=== PATIENT | male | born 1945 | race Caucasian/White ===

== ENCOUNTER 2016-07-18 19:19 | Inpatient (IN) | payer MEDICARE ==
[~2016-07-18] VITALS: Ht 180.3 cm; Wt 92.1 kg
[2016-07-18 22:09] LABS: RED BLOOD COUNT 4.1 M/UL (4.20-5.50); WHITE BLOOD COUNT 12.5 K/UL (4.5-11.0)
[2016-07-19 07:34] LABS: HEMOGLOBIN 12.6 gm/dl (14.0-17.5); RED BLOOD COUNT 3.71 M/UL (4.20-5.50)
[2016-07-19] MEDS ORDERED: ELIQUIS5 MG PO (11:12)
[2016-07-19] MEDS ORDERED: CARAFATE SU100 MG/ML PO (11:13)
[2016-07-19] MEDS ORDERED: ASPIRIN EC81 MG PO (11:13)
[2016-07-19] MEDS ORDERED: VALIUM 2 MG TAB2 MG PO (11:14)
[2016-07-19] MEDS ORDERED: ZETIA 10 MG TAB10 MG PO (11:15)
[2016-07-19] MEDS ORDERED: FOLIC ACID 1 MG1 MG PO (11:15)
[2016-07-19] MEDS ORDERED: LISINOPRIL40 MG PO (11:16)
[2016-07-19] MEDS ORDERED: NORCO 10-325 T1 EACH PO (11:16)
[2016-07-19] MEDS ORDERED: MAGNESIUM OXID400 MG PO (11:17)
[2016-07-19] MEDS ORDERED: DITROPAN 5 MG TA5 MG PO (11:18)
[2016-07-19] MEDS ORDERED: POTASSIUM CHLO10 MEQ PO (11:19)
[2016-07-19] MEDS ORDERED: VENTOLIN HFA 66.7 GM INH (11:20)
[2016-07-19] MEDS ORDERED: ZYLOPRIM 100 M100 MG PO (11:20)
[2016-07-19] MEDS ORDERED: LOPRESSOR100 MG PO (11:21)
[2016-07-19] MEDS ORDERED: PROTONIX 40 MG40 M1 PO (11:22)
[2016-07-19] MEDS ORDERED: ZANTAC 150 MG150 MG PO (11:22)
[2016-07-19 19:51] LABS: HEMOGLOBIN 11.6 gm/dl (14.0-17.5); RED BLOOD COUNT 3.43 M/UL (4.20-5.50); WHITE BLOOD COUNT 18.5 K/UL (4.5-11.0)
[2016-07-20 03:51] LABS: HEMOGLOBIN 11.7 gm/dl (14.0-17.5); RED BLOOD COUNT 3.5 M/UL (4.20-5.50); WHITE BLOOD COUNT 14.1 K/UL (4.5-11.0)
[2016-07-20 15:25] LABS: WHITE BLOOD COUNT 16.9 K/UL (4.5-11.0)
[2016-07-21 04:17] LABS: HEMOGLOBIN 12.1 gm/dl (14.0-17.5); RED BLOOD COUNT 3.61 M/UL (4.20-5.50); WHITE BLOOD COUNT 12.9 K/UL (4.5-11.0)
[2016-07-22 05:19] LABS: RED BLOOD COUNT 3.32 M/UL (4.20-5.50)
[2016-07-22 05:20] LABS: WHITE BLOOD COUNT 16.2 K/UL (4.5-11.0)
[2016-07-23 04:03] LABS: HEMOGLOBIN 10.6 gm/dl (14.0-17.5); RED BLOOD COUNT 3.16 M/UL (4.20-5.50); WHITE BLOOD COUNT 14.8 K/UL (4.5-11.0)
[2016-07-24 04:26] LABS: RED BLOOD COUNT 3.01 M/UL (4.20-5.50)
[2016-07-25 03:49] LABS: HEMOGLOBIN 10.1 gm/dl (14.0-17.5); RED BLOOD COUNT 3.09 M/UL (4.20-5.50); WHITE BLOOD COUNT 14.2 K/UL (4.5-11.0)
[2016-07-26 04:40] LABS: HEMOGLOBIN 9.1 gm/dl (14.0-17.5); RED BLOOD COUNT 2.81 M/UL (4.20-5.50); WHITE BLOOD COUNT 14.9 K/UL (4.5-11.0)
[2016-07-27 06:40] LABS: HEMOGLOBIN 8.9 gm/dl (14.0-17.5); RED BLOOD COUNT 2.75 M/UL (4.20-5.50); WHITE BLOOD COUNT 11.8 K/UL (4.5-11.0)
[2016-07-28 06:29] LABS: HEMOGLOBIN 8.2 gm/dl (14.0-17.5); RED BLOOD COUNT 2.53 M/UL (4.20-5.50); WHITE BLOOD COUNT 12.5 K/UL (4.5-11.0)
[2016-07-28] MEDS ORDERED: NORVASC2.5 MG PO (21:23)
[2016-07-28] MEDS ORDERED: VITAMIN D 11000 UNIT PO (21:24)
[2016-07-28] MEDS ORDERED: FORTAZ IV (21:33)
[2016-07-28] MEDS ORDERED: MULTIVITAMINS1 EAC1 PO (21:47)
[2016-11-28] MEDS ORDERED: VENTOLIN HFA 66.7 GM INH (22:37)
[2016-11-28] MEDS ORDERED: VALIUM 2 MG TAB2 MG PO (22:37)
[2016-11-28] MEDS ORDERED: ASPIRIN81 MG PO (22:38)
[2016-11-28] MEDS ORDERED: LISINOPRIL40 MG PO (22:38)
[2016-11-28] MEDS ORDERED: NORCO 10-325 T1 EACH PO (22:38)
[2016-11-28] MEDS ORDERED: ALDACTONE25 MG PO (22:39)
[2017-01-30] MEDS ORDERED: ALDACTONE25 MG PO (03:10)
[2017-01-30] MEDS ORDERED: ENDOCET 5-3251 EACH PO (03:10)
[2017-01-30] MEDS ORDERED: CARAFATE1 GM/10 ML PO (03:11)
[2017-01-30] MEDS ORDERED: ZOCOR10 MG PO (03:11)
[2017-01-30] MEDS ORDERED: MAG-OX 400 TAB400 MG PO (03:12)
[2017-01-30] MEDS ORDERED: DITROPAN 5 MG TA5 MG PO (03:13)
[2017-01-30] MEDS ORDERED: KLOR-CON M2020 MEQ PO (03:13)
[2017-01-30] MEDS ORDERED: LISINOPRIL40 MG PO (03:14)
[2017-02-07] MEDS ORDERED: TYLENOL 325MG325 MG PO (16:24)
[2017-02-07] MEDS ORDERED: FORTAZ IV (16:27)
[2017-02-07] MEDS ORDERED: VANCOMYCIN IV750 MG IV (16:28)
== END 2016-07-28 22:10 | disposition home health service (06) | DRG 682 ==
LOC: ER1 19:19 → M/S 07-19 05:09 → PROG CARE 07-19 05:09 → ZEROF 07-19 05:09 → PROG CARE 07-19 16:20 → M/S 07-26 18:20
PROVIDERS: Family Medicine; Internal Medicine; Internal Medicine Hematology & Oncology; Internal Medicine Nephrology; ADMIT Internal Medicine
PROC: B54BZZA Ultrasonography of Right Lower Extremity Veins, Guidance (ICD-10-PCS; principal; 2016-07-21)
PROC: 06HM33Z Insertion of Infusion Device into Right Femoral Vein, Percutaneous Approach (ICD-10-PCS; principal; 2016-07-21)
PROC: 05HM33Z Insertion of Infusion Device into Right Internal Jugular Vein, Percutaneous Approach (ICD-10-PCS; 2016-07-25)
PROC: B513ZZA Fluoroscopy of Right Jugular Veins, Guidance (ICD-10-PCS; 2016-07-25)
DX: N17.0 Acute kidney failure with tubular necrosis (principal); A41.51 Sepsis due to Escherichia coli [E. coli]; G93.41 Metabolic encephalopathy; I50.21 Acute systolic (congestive) heart failure; E87.1 Hypo-osmolality and hyponatremia; I42.9 Cardiomyopathy, unspecified; E87.2 Acidosis; D53.9 Nutritional anemia, unspecified; I11.0 Hypertensive heart disease with heart failure; D69.6 Thrombocytopenia, unspecified; D72.829 Elevated white blood cell count, unspecified; I48.2 Chronic atrial fibrillation; Z66 Do not resuscitate; E86.0 Dehydration; R31.9 Hematuria, unspecified; F10.20 Alcohol dependence, uncomplicated; Z51.89 Encounter for other specified aftercare; G47.30 Sleep apnea, unspecified; K21.9 Gastro-esophageal reflux disease without esophagitis; Z79.01 Long term (current) use of anticoagulants; M51.9 Unspecified thoracic, thoracolumbar and lumbosacral intervertebral disc disorder; N40.0 Benign prostatic hyperplasia without lower urinary tract symptoms; M10.9 Gout, unspecified; E78.5 Hyperlipidemia, unspecified; Z87.828 Personal history of other (healed) physical injury and trauma; Z96.7 Presence of other bone and tendon implants; Z98.890 Other specified postprocedural states; Z96.652 Presence of left artificial knee joint; I73.9 Peripheral vascular disease, unspecified; J44.9 Chronic obstructive pulmonary disease, unspecified; I25.10 Atherosclerotic heart disease of native coronary artery without angina pectoris; Z80.1 Family history of malignant neoplasm of trachea, bronchus and lung; Z80.8 Family history of malignant neoplasm of other organs or systems; Z82.49 Family history of ischemic heart disease and other diseases of the circulatory system; F55.8 Abuse of other non-psychoactive substances; Z87.891 Personal history of nicotine dependence; Z90.49 Acquired absence of other specified parts of digestive tract; Z91.81 History of falling; Z83.3 Family history of diabetes mellitus; R63.0 Anorexia; Z68.28 Body mass index [BMI] 28.0-28.9, adult; K76.9 Liver disease, unspecified; Z99.81 Dependence on supplemental oxygen; Z79.82 Long term (current) use of aspirin; Z79.899 Other long term (current) drug therapy
CPT/HCPCS: ECHO; 36415; 71010; 77001; 80048; 80053; 80069; 80074; 81001; 82247; 82436; 82550; 82553; 82607; 82728; 82746; 82800; 82962; 83010; 83036; 83540; 83550; 83605; 83615; 83735; 83874; 83880; 84100; 84133; 84300; 84443; 84484; 85025; 85027; 85045; 85379; 85384; 85610; 85730; 86039; 86160; 87040; 87077; 87086; 87186; 90935; 90937; 93005; 93306; 94640; 94664; 96361; 96374; 96375; 99285; C1752; C1769; J0690; J0696; J1335; J1644; J1956; J2060; J2270; J2405; J2997; J3370; J3411; J3430; J3475; J7030; J7050; J7120

== ENCOUNTER → 2016-07-31 | Outpatient (CLI) | payer MEDICARE ==
[~2016-07-31] VITALS: Ht 180.3 cm; Wt 92.1 kg
[~2016-07-31] MED LIST: ALDACTONE25 MG PO; ALLOPURINOL100 MG PO; ASPIRIN EC81 MG PO; ASPIRIN81 MG PO; CARAFATE SU100 MG/ML PO; CARAFATE1 GM/10 ML PO; DITROPAN 5 MG TA5 MG PO; ELIQUIS2.5 MG PO; ELIQUIS5 MG PO; ENDOCET 5-3251 EACH PO; FOLIC ACID 1 MG1 MG PO; FORTAZ IV; KLOR-CON M2020 MEQ PO; LISINOPRIL40 MG PO; LOPRESSOR100 MG PO; MAG-OX 400 TAB400 MG PO; MAGNESIUM OXID400 MG PO; MULTIVITAMINS1 EAC1 PO; NORCO 10-325 T1 EACH PO; NORVASC2.5 MG PO; POTASSIUM CHLO10 MEQ PO; PROCARDIA XL 6060 MG PO; PROTONIX 40 MG40 M1 PO; SODIUM BICARBO650 MG PO; SPIRONOLACTONE25 MG PO; TYLENOL 325MG325 MG PO; VALIUM 2 MG TAB2 MG PO; VANCOMYCIN IV750 MG IV; VENTOLIN HFA 66.7 GM INH; VITAMIN D 11000 UNIT PO; ZANTAC 150 MG150 MG PO; ZETIA 10 MG TAB10 MG PO; ZETIA10 MG PO; ZOCOR10 MG PO; ZYLOPRIM 100 M100 MG PO
== END ==
LOC: CT 06:30
PROC: 0TB13ZX Excision of Left Kidney, Percutaneous Approach, Diagnostic (ICD-10-PCS; principal; 2016-07-31)
DX: N17.0 Acute kidney failure with tubular necrosis (principal); R34 Anuria and oliguria
CPT/HCPCS: 77012; 88305; 88313; 88346; 88348

== ENCOUNTER 2016-09-27 00:20 | Inpatient (IN) | payer MEDICARE ==
[~2016-09-27] VITALS: Ht 177.8 cm; Wt 85.5 kg
[~2016-09-27 00:20] MED LIST changes: -ALDACTONE25 MG PO; -ALLOPURINOL100 MG PO; -ASPIRIN81 MG PO; -CARAFATE1 GM/10 ML PO; -ELIQUIS2.5 MG PO; -ENDOCET 5-3251 EACH PO; -KLOR-CON M2020 MEQ PO; -MAG-OX 400 TAB400 MG PO; -PROCARDIA XL 6060 MG PO; -SODIUM BICARBO650 MG PO; -SPIRONOLACTONE25 MG PO; -TYLENOL 325MG325 MG PO; -VANCOMYCIN IV750 MG IV; -ZETIA10 MG PO; -ZOCOR10 MG PO
[2016-09-27 01:03] LABS: HEMOGLOBIN 10.1 gm/dl (14.0-17.5); RED BLOOD COUNT 3.4 M/UL (4.20-5.50)
[2016-09-27] MEDS ORDERED: ALLOPURINOL100 MG PO (04:41)
[2016-09-27] MEDS ORDERED: ZETIA10 MG PO (04:42)
[2016-09-27] MEDS ORDERED: PROCARDIA XL 6060 MG PO (04:42)
[2016-09-27] MEDS ORDERED: SPIRONOLACTONE25 MG PO (04:43)
[2016-09-27] MEDS ORDERED: FOLIC ACID 1 MG1 MG PO (04:44)
--- NOTE | 2016-09-28 06:44 | NUR ---
[id number] lab called to report a critical K+ level of 5.6 up form 5.1 yesterday attempt to call DR BABIN NO ANSWER.
--- NOTE | 2016-09-28 06:47 | NUR ---
[id number] BABIN NO NEW ORDERS
[2016-09-29 06:16] LABS: HEMOGLOBIN 8.7 gm/dl (14.0-17.5)
[2016-09-29 06:20] LABS: RED BLOOD COUNT 2.97 M/UL (4.20-5.50); WHITE BLOOD COUNT 6.6 K/UL (4.5-11.0)
[2016-09-29 08:24] LABS: URINE CREATININE 39.3 mg/dL
[2016-09-29] MEDS ORDERED: ELIQUIS2.5 MG PO (16:06)
[2016-09-29] MEDS ORDERED: SODIUM BICARBO650 MG PO (16:06)
[2016-11-28] MEDS ORDERED: VENTOLIN HFA 66.7 GM INH (22:37)
[2016-11-28] MEDS ORDERED: VALIUM 2 MG TAB2 MG PO (22:37)
[2016-11-28] MEDS ORDERED: NORCO 10-325 T1 EACH PO (22:38)
[2016-11-28] MEDS ORDERED: ASPIRIN81 MG PO (22:38)
[2016-11-28] MEDS ORDERED: LISINOPRIL40 MG PO (22:38)
[2016-11-28] MEDS ORDERED: ALDACTONE25 MG PO (22:39)
[2017-01-30] MEDS ORDERED: ENDOCET 5-3251 EACH PO (03:10)
[2017-01-30] MEDS ORDERED: ALDACTONE25 MG PO (03:10)
[2017-01-30] MEDS ORDERED: CARAFATE1 GM/10 ML PO (03:11)
[2017-01-30] MEDS ORDERED: ZOCOR10 MG PO (03:11)
[2017-01-30] MEDS ORDERED: MAG-OX 400 TAB400 MG PO (03:12)
[2017-01-30] MEDS ORDERED: DITROPAN 5 MG TA5 MG PO (03:13)
[2017-01-30] MEDS ORDERED: KLOR-CON M2020 MEQ PO (03:13)
[2017-01-30] MEDS ORDERED: LISINOPRIL40 MG PO (03:14)
[2017-02-07] MEDS ORDERED: TYLENOL 325MG325 MG PO (16:24)
[2017-02-07] MEDS ORDERED: FORTAZ IV (16:27)
[2017-02-07] MEDS ORDERED: VANCOMYCIN IV750 MG IV (16:28)
== END 2016-09-29 16:56 | disposition home health service (06) | DRG 64 ==
LOC: ER1 00:20 → M/S 02:04 → ZEROF 02:04 → M/S 04:14
PROVIDERS: Emergency Medicine; Internal Medicine Nephrology; ADMIT Internal Medicine
DX: I63.8 Other cerebral infarction (principal); N18.6 End stage renal disease; G81.91 Hemiplegia, unspecified affecting right dominant side; I50.22 Chronic systolic (congestive) heart failure; I13.2 Hypertensive heart and chronic kidney disease with heart failure and with stage 5 chronic kidney disease, or end stage renal disease; N17.9 Acute kidney failure, unspecified; N12 Tubulo-interstitial nephritis, not specified as acute or chronic; E87.2 Acidosis; R47.81 Slurred speech; I48.91 Unspecified atrial fibrillation; E87.5 Hyperkalemia; J44.9 Chronic obstructive pulmonary disease, unspecified; Z99.2 Dependence on renal dialysis; E78.5 Hyperlipidemia, unspecified; F10.21 Alcohol dependence, in remission; K76.9 Liver disease, unspecified; Z86.39 Personal history of other endocrine, nutritional and metabolic disease; G47.33 Obstructive sleep apnea (adult) (pediatric); D69.59 Other secondary thrombocytopenia; Z79.899 Other long term (current) drug therapy
CPT/HCPCS: 36415; 70450; 71010; 80048; 80053; 80061; 82550; 82553; 82570; 82575; 82962; 83036; 83874; 84100; 84439; 84443; 84484; 85025; 85027; 85610; 85730; 92526; 92610; 93005; 93880; 97110; 97116; 99291; J1644; J1650; J2405

== ENCOUNTER 2020-04-29 13:03 | Inpatient (IN) | payer MEDICARE ==
[~2020-04-29] VITALS: Ht 180.3 cm; Wt 108.6 kg
[~2020-04-29 13:03] MED LIST changes: +ALDACTONE25 MG PO; +ALLOPURINOL100 MG PO; +ASPIRIN81 MG PO; +AZITHROMYCIN250 MG PO; +CARAFATE1 GM/10 ML PO; +COLACE 100MG C100 MG PO; +COZAAR50 MG PO; +DICLOFENAC SOD100 GM TP; +ENDOCET 5-3251 EACH PO; +HYDROCODON-ACE1 EAC6 PO; +KLOR-CON M2020 MEQ PO; +LEVAQUIN500 MG PO; +MAG-OX 400 TAB400 MG PO; +NEURONTIN300 MG PO; +PANTOPRAZOLE SO40 MG PO; +PROCARDIA XL 6060 MG PO; +SODIUM BICARBO650 MG PO; +SPIRONOLACTONE25 MG PO; +TOPROL XL25 MG PO; +TYLENOL 325MG325 MG PO; +VANCOMYCIN IV750 MG IV; +ZETIA10 MG PO; +ZOCOR10 MG PO; +[UNRECOGNIZED DRUG - CODE] INJ
[2020-04-29 15:05] LABS: HEMOGLOBIN 11.4 gm/dl (14.0-17.5); RED BLOOD COUNT 3.35 M/UL (4.20-5.50)
[2020-04-29] MEDS ORDERED: VALIUM 2 MG TAB2 MG PO (18:15)
[2020-04-29] MEDS ORDERED: FLOMAX 0.4 MG0.4 MG PO (18:17)
[2020-04-29] MEDS ORDERED: BUMETANIDE2 MG PO (18:19)
[2020-04-29] MEDS ORDERED: PHOSLO 667 MG667 MG PO (18:22)
[2020-04-29] MEDS ORDERED: ZAROXOLYN/DIULO5 MG PO (18:28)
[2020-04-29] MEDS ORDERED: VOLTAREN ARTHRI20 GM TP (18:29)
[2020-04-29] MEDS ORDERED: NITROSTAT0.4 MG SL (18:29)
[2020-04-29] MEDS ORDERED: LEVOTHYROXINE50 MC1 PO (18:30)
[2020-04-29] MEDS ORDERED: PROCARDIA XL60 MG PO (18:31)
[2020-04-29] MEDS ORDERED: COZAAR 50MG TAB50 MG PO (18:31)
[2020-04-29] MEDS ORDERED: PROSCAR 5 MG TAB5 MG PO (18:32)
[2020-04-30 08:28] LABS: HEMOGLOBIN 11.1 gm/dl (14.0-17.5); RED BLOOD COUNT 3.22 M/UL (4.20-5.50); WHITE BLOOD COUNT 2.3 K/UL (4.5-11.0)
[2020-05-01 03:47] LABS: HEMOGLOBIN 10.8 gm/dl (14.0-17.5); RED BLOOD COUNT 3.14 M/UL (4.20-5.50)
[2020-05-01 03:56] LABS: WHITE BLOOD COUNT 3.9 K/UL (4.5-11.0)
[2020-05-02 07:32] LABS: HEMOGLOBIN 9.9 gm/dl (14.0-17.5); RED BLOOD COUNT 2.97 M/UL (4.20-5.50); WHITE BLOOD COUNT 3.2 K/UL (4.5-11.0)
[2020-05-02 08:19] LABS: BUN/CREATININE RATIO 6 (0-10)
[2020-05-03 03:26] LABS: RED BLOOD COUNT 2.84 M/UL (4.20-5.50); WHITE BLOOD COUNT 3.4 K/UL (4.5-11.0)
[2020-05-04 03:18] LABS: HEMOGLOBIN 10.2 gm/dl (14.0-17.5); RED BLOOD COUNT 2.99 M/UL (4.20-5.50); WHITE BLOOD COUNT 3.1 K/UL (4.5-11.0)
[2020-05-04] MEDS ORDERED: DECADRON4 MG PO (10:39)
[2020-05-04 16:11] LABS: HEMATOCRIT 31.7 % (37.5-51.0)
== END 2020-05-04 11:37 | disposition home or self-care (01) | DRG 177 ==
LOC: ER1 13:03 → CDU 16:24 → PROG CARE 23:08
PROVIDERS: Internal Medicine Nephrology; Preventive Medicine Occupational Medicine; ADMIT Family Medicine
PROC: 8E0ZXY6 Isolation (ICD-10-PCS; principal; 2020-04-29)
PROC: XW033E5 Introduction of Remdesivir Anti-infective into Peripheral Vein, Percutaneous Approach, New Technology Group 5 (ICD-10-PCS; 2020-04-29)
PROC: XW13325 Transfusion of Convalescent Plasma (Nonautologous) into Peripheral Vein, Percutaneous Approach, New Technology Group 5 (ICD-10-PCS; 2020-04-30)
DX: U07.1 COVID-19 (principal); J12.82 Pneumonia due to coronavirus disease 2019; J96.21 Acute and chronic respiratory failure with hypoxia; N18.6 End stage renal disease; J15.9 Unspecified bacterial pneumonia; I48.20 Chronic atrial fibrillation, unspecified; J44.0 Chronic obstructive pulmonary disease with (acute) lower respiratory infection; E87.1 Hypo-osmolality and hyponatremia; I42.9 Cardiomyopathy, unspecified; I12.0 Hypertensive chronic kidney disease with stage 5 chronic kidney disease or end stage renal disease; D61.818 Other pancytopenia; Y95 Nosocomial condition; D64.9 Anemia, unspecified; I36.1 Nonrheumatic tricuspid (valve) insufficiency; I27.20 Pulmonary hypertension, unspecified; M19.90 Unspecified osteoarthritis, unspecified site; E78.5 Hyperlipidemia, unspecified; E87.6 Hypokalemia; G47.33 Obstructive sleep apnea (adult) (pediatric); Z87.81 Personal history of (healed) traumatic fracture; Z90.49 Acquired absence of other specified parts of digestive tract; Z99.81 Dependence on supplemental oxygen; Z99.2 Dependence on renal dialysis; Z80.1 Family history of malignant neoplasm of trachea, bronchus and lung; Z79.01 Long term (current) use of anticoagulants; Z79.890 Hormone replacement therapy; Z79.899 Other long term (current) drug therapy
CPT/HCPCS: 36415; 36600; 71045; 80048; 80053; 81001; 82550; 82553; 82607; 82747; 82803; 83605; 83690; 83735; 83874; 83880; 84484; 85025; 85027; 85610; 85652; 85730; 86140; 86900; 86901; 86927; 87040; 87070; 87086; 87205; 90935; 90937; 94640; 94664; 94760; 96365; 96366; 96367; 96375; 99285; J0456; J1100; J1335; J7030; J7050; U0002

== ENCOUNTER 2020-10-22 06:30 | Observation (INO) | payer MEDICARE ==
[~2020-10-22] VITALS: Ht 177.8 cm; Wt 104.3 kg
[~2020-10-22 06:30] MED LIST changes: +BUMETANIDE2 MG PO; +COZAAR 50MG TAB50 MG PO; +DECADRON4 MG PO; +FLOMAX 0.4 MG0.4 MG PO; +LEVOTHYROXINE50 MC1 PO; +NITROSTAT0.4 MG SL; +PHOSLO 667 MG667 MG PO; +PROCARDIA XL60 MG PO; +PROSCAR 5 MG TAB5 MG PO; +VOLTAREN ARTHRI20 GM TP; +ZAROXOLYN/DIULO5 MG PO
[2020-10-22 07:15] LABS: HEMOGLOBIN 10.7 gm/dl (14.0-17.5); RED BLOOD COUNT 3.18 M/UL (4.20-5.50); WHITE BLOOD COUNT 7.2 K/UL (4.5-11.0)
[2020-10-22] MEDS ORDERED: TOPROL XL25 MG PO (13:28)
[2020-10-23 04:14] LABS: HEMOGLOBIN 10.1 gm/dl (14.0-17.5); RED BLOOD COUNT 3.04 M/UL (4.20-5.50)
[2020-10-23 04:15] LABS: WHITE BLOOD COUNT 4.8 K/UL (4.5-11.0)
== END 2020-10-23 12:04 | disposition home or self-care (01) ==
LOC: ER1 06:30 → CDU 08:29 → M/S 09:46
PROVIDERS: Family Medicine; Physician Assistant Medical; ADMIT Internal Medicine
DX: R55 Syncope and collapse (principal); I13.2 Hypertensive heart and chronic kidney disease with heart failure and with stage 5 chronic kidney disease, or end stage renal disease; N18.6 End stage renal disease; I50.22 Chronic systolic (congestive) heart failure; J44.9 Chronic obstructive pulmonary disease, unspecified; I48.91 Unspecified atrial fibrillation; I42.0 Dilated cardiomyopathy; E78.5 Hyperlipidemia, unspecified; G47.33 Obstructive sleep apnea (adult) (pediatric); J96.10 Chronic respiratory failure, unspecified whether with hypoxia or hypercapnia; Z99.2 Dependence on renal dialysis; Z86.16 Personal history of COVID-19; Z98.1 Arthrodesis status; Z79.01 Long term (current) use of anticoagulants; Z79.891 Long term (current) use of opiate analgesic; Z79.899 Other long term (current) drug therapy; Z20.822 Contact with and (suspected) exposure to COVID-19
CPT/HCPCS: ECHO; 70450; 71045; 80048; 80053; 82550; 82553; 83735; 83874; 84484; 85025; 85027; 90935; 93005; 93270; 93306; 93880; 94760; 99285; G0257; G0378; U0002

== ENCOUNTER → 2020-11-19 | Outpatient (CLI) | payer MEDICARE ==
[~2020-11-19] MED LIST changes: +DOXYCYCLINE HY100 MG PO; +OMNICEF 300 MG300 MG PO
== END ==
LOC: EMI 08:00
DX: R56.9 Unspecified convulsions (principal); J32.0 Chronic maxillary sinusitis
CPT/HCPCS: 70551

== ENCOUNTER 2020-12-04 11:22 | Observation (INO) | payer MEDICARE, MEDICAID ==
[~2020-12-04] VITALS: Ht 177.8 cm; Wt 103.4 kg
[~2020-12-04 11:22] MED LIST changes: -DOXYCYCLINE HY100 MG PO; -OMNICEF 300 MG300 MG PO
[2020-12-04 13:02] LABS: HEMOGLOBIN 10.4 gm/dl (14.0-17.5); RED BLOOD COUNT 3.26 M/UL (4.20-5.50); WHITE BLOOD COUNT 6.6 K/UL (4.5-11.0)
[2020-12-05 02:33] LABS: HEMOGLOBIN 9.2 gm/dl (14.0-17.5); RED BLOOD COUNT 2.99 M/UL (4.20-5.50); WHITE BLOOD COUNT 6.7 K/UL (4.5-11.0)
== END 2020-12-05 12:59 | disposition home or self-care (01) ==
LOC: ER1 11:22 → M/S 14:42 → CDU 14:42 → M/S 18:52
PROVIDERS: Physician Assistant Medical; ADMIT Internal Medicine
DX: R55 Syncope and collapse (principal); J96.11 Chronic respiratory failure with hypoxia; J90 Pleural effusion, not elsewhere classified; J44.9 Chronic obstructive pulmonary disease, unspecified; N18.6 End stage renal disease; I50.22 Chronic systolic (congestive) heart failure; I13.2 Hypertensive heart and chronic kidney disease with heart failure and with stage 5 chronic kidney disease, or end stage renal disease; I42.0 Dilated cardiomyopathy; E78.5 Hyperlipidemia, unspecified; G47.33 Obstructive sleep apnea (adult) (pediatric); I48.20 Chronic atrial fibrillation, unspecified; Z79.01 Long term (current) use of anticoagulants; Z20.822 Contact with and (suspected) exposure to COVID-19; G31.9 Degenerative disease of nervous system, unspecified
CPT/HCPCS: 36415; 36600; 70450; 71045; 80048; 80053; 82550; 82553; 82803; 83735; 83874; 83880; 84484; 85025; 85027; 93005; 94760; 99285; G0378; U0002

== ENCOUNTER 2020-12-17 09:30 | Emergency (ER) | payer MEDICARE ==
[2020-12-17 12:03] LABS: HEMOGLOBIN 9.9 gm/dl (14.0-17.5); RED BLOOD COUNT 3.08 M/UL (4.20-5.50); WHITE BLOOD COUNT 6.1 K/UL (4.5-11.0)
[2020-12-17] MEDS ORDERED: DOXYCYCLINE HY100 MG PO (12:56)
[2020-12-17] MEDS ORDERED: OMNICEF 300 MG300 MG PO (12:56)
== END 2020-12-17 13:06 | disposition home or self-care (01) ==
LOC: ER1 09:30
PROVIDERS: Student in an Organized Health Care Education/Training Program
DX: J18.9 Pneumonia, unspecified organism (principal); J44.9 Chronic obstructive pulmonary disease, unspecified; I12.0 Hypertensive chronic kidney disease with stage 5 chronic kidney disease or end stage renal disease; N18.6 End stage renal disease; Z20.822 Contact with and (suspected) exposure to COVID-19
CPT/HCPCS: 71045; 80053; 85025; 99285; U0002